=== PATIENT | male | born 1970 | race Caucasian/White ===

== ENCOUNTER 2021-05-02 15:38 | Emergency (ER) | payer OTHER ==
[2021-05-02] MEDS ORDERED: CASIRIVIMAB/IMDEVIMAB 10 ML in SODIUM CHLORIDE 100 ML IVPB ONE (16:05)
[2021-05-02 16:12] VITALS: BP 131/80; PULSE 80; TEMP 98.4; BMI 40.4
[2021-05-02 17:43] LABS: BASO % 0.5 % (0-2.0); EOS % 0.3 % (0-4.5); HEMATOCRIT 35.8 % (35.4-49); HEMOGLOBIN 12.4 GM/dL (11.7-16.9); LYMPH % 29.1 % (8-40); MCH 29.5 pg (25.7-33.7); MCHC 34.5 g/dl (32.0-35.9); MEAN CELL VOLUME 85.4 fl (80-96); MEAN PLT VOLUME 9.3 fl (7.5-11.1); MONO % 11.4 % (3.8-10.2); NEUT % 58.7 % (42.8-82.8); PLATELET COUNT 147 10^3/uL (134-434); RBC 4.19 M/mm3 (4.00-5.60); RDW 13.2 % (11.9-15.9); WHITE BLOOD COUNT 2.3 K/mm3 (4.0-10.0)
[2021-05-02 18:00] LABS: CALCIUM 8.8 mg/dL (8.5-10.1)
[2021-05-02 18:01] LABS: BLOOD UREA NITROGEN 13.6 mg/dL (7-18)
[2021-05-02 18:03] LABS: CREATININE 0.7 mg/dL (0.55-1.3)
[2021-05-02 18:05] LABS: BILIRUBIN,TOTAL 0.3 mg/dL (0.2-1); TOT PROT 7.8 g/dl (6.4-8.2)
== END 2021-05-02 19:01 | disposition home or self-care (01) ==
LOC: JCOVINFU 15:38
PROC: 3E033GC Introduction of Other Therapeutic Substance into Peripheral Vein, Percutaneous Approach (ICD-10-PCS; principal; 2021-05-02)
DX: U07.1 COVID-19 (principal)
CPT/HCPCS: 36415; 80053; 85025; 99284-25; Q0240